=== PATIENT | male | born 1970 | race Caucasian/White ===

== ENCOUNTER 2022-05-21 12:55 | Outpatient (RCR) | payer OTHER, SELFPAY ==
--- NOTE | 2022-05-21 15:35 | PTOPEVAL ---
Thank you for referring WILFRED GONZALEZ to [facility] The patient is scheduled to be seen for therapy? 2-3x/week for 12 visits. Please review, sign, date and return this plan of care ISABEL. I agree with and certify that the following plan of care is medically necessary. Referring Physician Date Admitting Provider: Attending Provider: MARIA M ARRIAGA Referring Provider: *PT Outpatient Evaluation Start: 05/21/22 12:41 Freq: Status: Active Protocol: Document 05/21/22 12:59 [facility] (Rec: 05/21/22 15:29 [id number]) Therapy Assessment Status Assessment Status Assessment Status Evaluation Evaluation Information Problem Diagnosis Status post L TKA Onset 05/14/22 Subjective Information Pt reports that when he was 15 Query Text:As Reported By Patient/ , he had a L knee injury while Family playing football. He required surgery to remove his medial meniscus. He reports that his knee held up well after surgery but that his pain and discomfort began to return when he was around 35. Although they discussed a knee replacement, the general consensus was to push off the L TKA until he was 50. He has been apart of a research study since 2 weeks pre-op through [facility] that includes exercises for him to do, which he has been doing. He reports that in the last few days, they have noticed a reddening in his L yen which is slightly painful and warm to the touch. Denies fevers or any other symptoms, just reports it feels like a bruise. He has been in touch with his surgeon about this. Patient reports that he wants to return back to hunting, hiking, backpacking. Pt and Susan live in [place] but flew here for the TKA and they plan to stay in town until the end of June (June 26- ). Prior Level of Function Activity Level (Last 3 Months) Occupation Safety and security
== END 2022-06-22 14:03 | disposition home or self-care (01) ==
LOC: CHSPT 12:55
DX: Z47.1 Aftercare following joint replacement surgery (principal); Z96.652 Presence of left artificial knee joint
CPT/HCPCS: 97016; 97110; 97112; 97116; 97140; 97161; 97530